=== PATIENT | female | born 1940 | race Caucasian/White ===

== ENCOUNTER 2025-03-23 13:32 | Emergency (ER) | payer MEDICARE, OTHER | END 2025-03-23 15:47 | LOC: VM.ED 13:32 | DX: S63.501A Unspecified sprain of right wrist, initial encounter (principal); I10 Essential (primary) hypertension; W01.0XXA Fall on same level from slipping, tripping and stumbling without subsequent striking against object, initial encounter; Y93.01 Activity, walking, marching and hiking | CPT/HCPCS: 73110-RT; 99283; 99284 ==